=== PATIENT | male | born 1995 | race Two or more races ===

== ENCOUNTER 2017-05-20 00:03 | Emergency (ER) | payer OTHER ==
[~2017-05-20] VITALS: Ht 165.1 cm; Wt 90.7 kg
[2017-05-20 00:35] VITALS: BP 150/104
[2017-05-20] MEDS ORDERED: TETRACAINE HCL 0.5% OPTH(EYE) SOLN 4ML ONE (03:09)
[2017-05-20] MEDS ORDERED: FLUORESCEIN SOD 1 MG TEST STRIP ONE (03:09)
[2017-05-20] MEDS ORDERED: TETRACAINE HCL 0.5% OPTH(EYE) SOLN 4ML LEFTEYE ONE (03:15)
[2017-05-20] MEDS ORDERED: FLUORESCEIN SOD 1 MG TEST STRIP LEFTEYE ONE (03:15)
== END 2017-05-20 03:43 | disposition home or self-care (01) ==
LOC: ER 00:07
DX: H16.001 Unspecified corneal ulcer, right eye (principal)
CPT/HCPCS: 99283; J7040

== ENCOUNTER 2019-05-16 06:24 | Emergency (ER) | payer OTHER ==
[~2019-05-16] VITALS: Ht 162.6 cm; Wt 95.3 kg
[2019-05-16 06:38] VITALS: BP 164/87
== END 2019-05-16 08:26 | disposition home or self-care (01) ==
LOC: ER 06:24
DX: S93.602A Unspecified sprain of left foot, initial encounter (principal); X50.1XXA Overexertion from prolonged static or awkward postures, initial encounter; Y93.39 Activity, other involving climbing, rappelling and jumping off; Y92.69 Other specified industrial and construction area as the place of occurrence of the external cause; Y99.8 Other external cause status
CPT/HCPCS: 73630